=== PATIENT | male | born 1960 | race Caucasian/White ===

== ENCOUNTER 2019-05-08 07:59 | Day surgery (SDC) | payer OTHER ==
[~2019-05-08] VITALS: Ht 185.4 cm; Wt 102.1 kg
[2019-05-08] VITALS (9 sets, daily range): BP systolic 110–134; BP diastolic 61–74
[2019-05-08] MEDS ORDERED: METFORMIN500 MG PO (08:18)
[2019-05-08] MEDS ORDERED: EXCEDRI3 PO (08:19)
[2019-05-08] MEDS ORDERED: TAMSULOSIN0.4 MG PO (08:20)
[2019-05-08] MEDS ORDERED: CLOTRIMAZOLE13 EX (08:21)
[2019-05-08] MEDS ORDERED: TOLNAFTATE TOP (08:25)
[2019-05-08] MEDS ORDERED: LIQUITEARS IO (08:26)
[2019-05-09 00:06] VITALS: BP 125/76
[2019-05-09 04:24] VITALS: BP 127/71
[2019-05-09 05:42] LABS: HEMATOCRIT 38.6 % (39.0-50.0); HEMOGLOBIN 12.6 g/dl (14.0-18.0); IMMATURE GRANULOCYTES 0.2 % (0.0-5.0); MEAN CELL VOLUME 97.5 fL CALC (80.0-100.0); MEAN CORPUSCULAR HGB 31.8 pG CALC (26.0-32.0); MEAN CORPUSCULAR HGB CONC 32.6 g/L CALC (32.0-36.0); NEUT# 5.29 thou/uL (1.82-7.42); RED BLOOD COUNT 3.96 mill/uL (4.70-6.10)
[2019-05-09 06:10] LABS: ANION GAP 12 (6-22 (CALC)); BUN 9 mg/dL (9-20); BUN/CREATININE RATIO 13 (12-20 (CALC)); CARBON DIOXIDE 25 mmol/l (22-30); CHLORIDE 104 mmol/l (95-108); CREATININE 0.7 mg/dL (0.7-1.3); GFR > 60 ML/MIN (>=60 (CALC)); GFR FOR AFR.AMER. > 60 ML/MIN (>=60 (CALC)); MAGNESIUM 1.6 mg/dL (1.6-2.3); SODIUM 138 mmol/l (137-146)
[2019-05-09 07:45] VITALS: BP 128/72
== END 2019-05-09 13:14 | disposition designated cancer center or children's hospital (05) | DRG 714 ==
LOC: ORM 07:59 → MS2 12:40 → ORM 05-09 13:14
PROVIDERS: ATTEND Urology
PROC: XV508A4 Destruction of Prostate using Robotic Waterjet Ablation, Via Natural or Artificial Opening Endoscopic, New Technology Group 4 (ICD-10-PCS; principal; 2019-05-08)
PROC: 0TCB8ZZ Extirpation of Matter from Bladder, Via Natural or Artificial Opening Endoscopic (ICD-10-PCS; 2019-05-08)
DX: N40.1 Benign prostatic hyperplasia with lower urinary tract symptoms (principal); R35.1 Nocturia; R39.12 Poor urinary stream; R33.8 Other retention of urine; N21.0 Calculus in bladder; N20.0 Calculus of kidney; I10 Essential (primary) hypertension; E11.9 Type 2 diabetes mellitus without complications; E78.5 Hyperlipidemia, unspecified; K21.9 Gastro-esophageal reflux disease without esophagitis; R97.20 Elevated prostate specific antigen [PSA]; Z87.442 Personal history of urinary calculi
CPT/HCPCS: 0421T; 52310; J2270

== ENCOUNTER 2019-05-10 20:22 | Emergency (ER) | payer OTHER ==
[~2019-05-10] VITALS: Ht 185.4 cm; Wt 101.8 kg
[~2019-05-10 20:22] MED LIST: CLOTRIMAZOLE13 EX; EXCEDRI3 PO; LIQUITEARS IO; METFORMIN500 MG PO; TAMSULOSIN0.4 MG PO; TOLNAFTATE TOP
[2019-05-10 21:44] VITALS: BP 141/77
== END 2019-05-10 21:53 | disposition designated cancer center or children's hospital (05) | DRG 696 ==
LOC: ED 20:22
DX: R33.9 Retention of urine, unspecified (principal); E11.9 Type 2 diabetes mellitus without complications; Z79.84 Long term (current) use of oral hypoglycemic drugs; Z98.890 Other specified postprocedural states